=== PATIENT | male | born 1975 | race Caucasian/White ===

== ENCOUNTER 2023-08-26 22:40 | Emergency (ER) | payer MEDICAID ==
[2023-08-27 02:37] LABS: BASOPHILS ABSOLUTE AUTO 0.02 K/uL (0.00-0.20); BASOPHILS PERCENT AUTO 0.3 % (0.0-1.0); EOSINOPHILS ABSOLUTE AUTO 0.01 K/uL (0.00-0.45); EOSINOPHILS PERCENT AUTO 0.1 % (0.0-6.0); HEMATOCRIT 36.1 % (42.0-52.0); HEMOGLOBIN 12.1 g/dL (14.0-18.0); IMMATURE GRAN ABSOLUTE AUTO 0.02 K/uL (0.00-0.05); IMMATURE GRAN PERCENT AUTO 0.3 % (0.0-0.4); LYMPHOCYTES ABSOLUTE AUTO 0.67 K/uL (1.00-4.80); LYMPHOCYTES PERCENT AUTO 8.9 % (24.0-44.0); MEAN CORPUSCULAR HGB CONC 33.5 g/dL (32.0-36.0); MEAN CORPUSCULAR VOLUME 77.6 fL (83.0-99.0); MEAN PLATELET VOLUME 9.9 fL (9.4-12.4); MONOCYTES ABSOLUTE AUTO 0.98 K/uL (0.00-0.80); NEUTROPHILS ABSOLUTE AUTO 5.84 K/uL (1.80-7.70); NEUTROPHILS PERCENT AUTO 77.4 % (41.0-71.0); PLATELET COUNT,PLT 256 K/uL (150-400); RED BLOOD CELL COUNT 4.65 M/uL (4.52-5.90); WHITE BLOOD CELL COUNT,WBC 7.54 K/uL (3.9-11.3)
[2023-08-27 03:10] LABS: A/G RATIO 0.8 (0.9-1.6); ACETAMINOPHEN <2.0 ug/mL; ALANINE AMINOTRANSFERASE,ALT 8 IU/L (14-63); ALBUMIN 2.9 g/dL (3.4-5.0); ALKALINE PHOSPHATASE 97 U/L (46-116); ASPARTATE AMNIOTRANSFERASE,AST 9 IU/L (15-37); BILIRUBIN TOTAL 0.6 mg/dL (0.2-1.0); BLOOD UREA NITROGEN,BUN 10 mg/dL (7.0-18.0); CALCIUM 8.2 mg/dL (8.5-10.1); CARBON DIOXIDE,CO2 23.7 mmol/L (21.0-32.0); CHLORIDE,CL 103 mmol/L (98-107); CREATININE 1.2 mg/dL (0.8-1.3); EST CRCL DRUG DOSING (CG) 74.46 mL/min; GLUCOSE RANDOM 188 mg/dL (74-106); MAGNESIUM 1.7 mg/dL (1.8-2.4); POTASSIUM,K 3.4 mmol/L (3.5-5.1); PROTEIN TOTAL,TP 6.4 g/dL (6.4-8.2); SALICYLATE <0.2 mg/dL (0.0-20.0); SODIUM,NA 137 mmol/L (136-148); TSH ULTRASENSITIVE 1.33 uIU/mL (0.36-3.74)
[2023-08-27 03:19] LABS: ESTIMATED GFR 74 mL/min (>60); ETHANOL BLOOD MEDICAL < 3.0 mg/dL
[2023-08-27 03:38] LABS: APPEARANCE,URINE CLEAR; BILIRUBIN,URINE NEGATIVE (NEGATIVE); COLOR,URINE YELLOW; GLUCOSE,URINE NEGATIVE (NEGATIVE); KETONES,URINE NEGATIVE (NEGATIVE); LEUKOCYTE ESTERASE,URINE NEGATIVE (NEGATIVE); NITRITE,URINE NEGATIVE (NEGATIVE); OCCULT BLOOD,URINE NEGATIVE (NEGATIVE); PH,URINE 6.5 (5.0-8.0); PROTEIN,URINE NEGATIVE (NEGATIVE); UROBILINOGEN,URINE 0.2 EU/dL (<2.0)
[2023-08-27 03:45] LABS: BACTERIA,URINE RARE (NEGATIVE); EPITHELIAL CELLS,URINE RARE (NONE-FEW); RBC,URINE 0-1 (0-2/HPF); WBC,URINE NONE SEEN (0-5/HPF)
[2023-08-27 03:46] LABS: AMPHETAMINES SCREEN, URINE NEGATIVE (CUTOFF=500); BARBITURATE SCREEN,URINE NEGATIVE (CUTOFF=200); BENZODIAZEPINES SCREEN,URINE NEGATIVE (CUTOFF=150); BUPRENORPHINE SCREEN,URINE NEGATIVE (CUTOFF=10); METHADONE SCREEN, URINE NEGATIVE (CUTOFF=200); METHAMPHETAMINES SCREEN, URINE NEGATIVE (CUTOFF=500); OXYCODONE SCREEN,URINE NEGATIVE (CUT0FF=100); PCP SCREEN,URINE NEGATIVE (CUTOFF=25); THC SCREEN,URINE 20 NG/ML NEGATIVE (CUTOFF=50)
== END 2023-08-27 04:14 | disposition home or self-care (01) ==
LOC: MW.ED 22:40
DX: Z04.6 Encounter for general psychiatric examination, requested by authority (principal)
CPT/HCPCS: 36415; 80053; 80143; 80179; 80305-QW; 80307; 81001; 83735; 84443; 85025; 93005; 93010; 99282; 99283

== ENCOUNTER 2024-08-31 06:42 | Emergency (ER) | payer MEDICAID ==
[2024-08-31 08:09] LABS: INR 1.19 (0.86-1.11)
[2024-08-31 08:17] LABS: A/G RATIO 1.3 (0.9-1.6); ALANINE AMINOTRANSFERASE,ALT 33 IU/L (14-63); ALBUMIN 3.7 g/dL (3.4-5.0); ALKALINE PHOSPHATASE 87 U/L (46-116); ASPARTATE AMNIOTRANSFERASE,AST 49 IU/L (15-37); BILIRUBIN TOTAL 0.8 mg/dL (0.2-1.0); BLOOD UREA NITROGEN,BUN 18 mg/dL (7.0-18.0); CALCIUM 8.6 mg/dL (8.5-10.1); CARBON DIOXIDE,CO2 23.8 mmol/L (21.0-32.0); CHLORIDE,CL 106 mmol/L (98-107); EST CRCL DRUG DOSING (CG) 88.38 mL/min; GLUCOSE RANDOM 83 mg/dL (74-106); POTASSIUM,K 3.6 mmol/L (3.5-5.1); PROTEIN TOTAL,TP 6.5 g/dL (6.4-8.2); SODIUM,NA 141 mmol/L (136-148)
[2024-08-31 08:18] LABS: ESTIMATED GFR 92 mL/min (>60); ETHANOL BLOOD MEDICAL < 3.0 mg/dL
[2024-08-31 08:19] LABS: BASOPHILS ABSOLUTE AUTO 0.07 K/uL (0.00-0.20); BASOPHILS PERCENT AUTO 0.5 % (0.0-1.0); EOSINOPHILS ABSOLUTE AUTO 0.23 K/uL (0.00-0.45); EOSINOPHILS PERCENT AUTO 1.7 % (0.0-6.0); HEMATOCRIT 39.2 % (42.0-52.0); HEMOGLOBIN 13.5 g/dL (14.0-18.0); IMMATURE GRAN ABSOLUTE AUTO 0.07 K/uL (0.00-0.05); IMMATURE GRAN PERCENT AUTO 0.5 % (0.0-0.4); LYMPHOCYTES ABSOLUTE AUTO 0.63 K/uL (1.00-4.80); LYMPHOCYTES PERCENT AUTO 4.5 % (24.0-44.0); MEAN CORPUSCULAR HEMOGLOBIN 29.5 pg (28.0-32.0); MEAN CORPUSCULAR HGB CONC 34.4 g/dL (32.0-36.0); MEAN CORPUSCULAR VOLUME 85.6 fL (83.0-99.0); MEAN PLATELET VOLUME 10.3 fL (9.4-12.4); MONOCYTES ABSOLUTE AUTO 1.07 K/uL (0.00-0.80); MONOCYTES PERCENT AUTO 7.7 % (0.0-8.0); NEUTROPHILS ABSOLUTE AUTO 11.79 K/uL (1.80-7.70); NEUTROPHILS PERCENT AUTO 85.1 % (41.0-71.0); PLATELET COUNT,PLT 241 K/uL (150-400); RED BLOOD CELL COUNT 4.58 M/uL (4.52-5.90); WHITE BLOOD CELL COUNT,WBC 13.86 K/uL (3.9-11.3)
[2024-08-31 08:27] LABS: AMPHETAMINES SCREEN, URINE NEGATIVE (CUTOFF=500); BARBITURATE SCREEN,URINE NEGATIVE (CUTOFF=200); BENZODIAZEPINES SCREEN,URINE NEGATIVE (CUTOFF=150); BUPRENORPHINE SCREEN,URINE NEGATIVE (CUTOFF=10); METHADONE SCREEN, URINE NEGATIVE (CUTOFF=200); METHAMPHETAMINES SCREEN, URINE NEGATIVE (CUTOFF=500); OXYCODONE SCREEN,URINE NEGATIVE (CUT0FF=100); PCP SCREEN,URINE NEGATIVE (CUTOFF=25); THC SCREEN,URINE 20 NG/ML NEGATIVE (CUTOFF=50)
== END 2024-08-31 10:24 | disposition home or self-care (01) ==
LOC: MW.ED 06:42
DX: S00.83XA Contusion of other part of head, initial encounter (principal); Y04.0XXA Assault by unarmed brawl or fight, initial encounter
CPT/HCPCS: 36415; 70450; 70450-26; 70486; 70486-26; 72125; 72125-26; 80053; 80305-QW; 80307; 85025; 85610; 99284

== ENCOUNTER 2024-08-31 22:29 | Emergency (ER) | payer MEDICAID ==
[2024-08-31 23:03] LABS: BASOPHILS PERCENT AUTO 1.1 % (0.0-1.0); EOSINOPHILS ABSOLUTE AUTO 0.06 K/uL (0.00-0.45); EOSINOPHILS PERCENT AUTO 0.7 % (0.0-6.0); HEMATOCRIT 41.5 % (42.0-52.0); HEMOGLOBIN 14.1 g/dL (14.0-18.0); IMMATURE GRAN ABSOLUTE AUTO 0.02 K/uL (0.00-0.05); IMMATURE GRAN PERCENT AUTO 0.2 % (0.0-0.4); LYMPHOCYTES PERCENT AUTO 17.1 % (24.0-44.0); MEAN CORPUSCULAR VOLUME 85.4 fL (83.0-99.0); MEAN PLATELET VOLUME 9.9 fL (9.4-12.4); MONOCYTES ABSOLUTE AUTO 0.87 K/uL (0.00-0.80); MONOCYTES PERCENT AUTO 9.9 % (0.0-8.0); NEUTROPHILS ABSOLUTE AUTO 6.23 K/uL (1.80-7.70); PLATELET COUNT,PLT 247 K/uL (150-400); RED BLOOD CELL COUNT 4.86 M/uL (4.52-5.90); WHITE BLOOD CELL COUNT,WBC 8.78 K/uL (3.9-11.3)
[2024-08-31 23:25] LABS: APPEARANCE,URINE CLEAR; COLOR,URINE YELLOW; GLUCOSE,URINE NEGATIVE (NEGATIVE); KETONES,URINE >=80 mg/dL (NEGATIVE); LEUKOCYTE ESTERASE,URINE NEGATIVE (NEGATIVE); NITRITE,URINE NEGATIVE (NEGATIVE); OCCULT BLOOD,URINE TRACE-INTACT (NEGATIVE); PROTEIN,URINE NEGATIVE (NEGATIVE); UROBILINOGEN,URINE 0.2 EU/dL (<2.0)
[2024-08-31 23:28] LABS: BACTERIA,URINE FEW (NEGATIVE); BILIRUBIN,URINE SMALL (NEGATIVE); EPITHELIAL CELLS,URINE NOT SEEN (NONE-FEW); MUCUS,URINE LIGHT (NONE-MOD); RBC,URINE 0-3 (0-2/HPF); WBC,URINE 0-2 (0-5/HPF)
[2024-08-31 23:29] LABS: AMPHETAMINES SCREEN, URINE NEGATIVE (CUTOFF=500); BARBITURATE SCREEN,URINE NEGATIVE (CUTOFF=200); BENZODIAZEPINES SCREEN,URINE NEGATIVE (CUTOFF=150); BUPRENORPHINE SCREEN,URINE NEGATIVE (CUTOFF=10); METHADONE SCREEN, URINE NEGATIVE (CUTOFF=200); METHAMPHETAMINES SCREEN, URINE NEGATIVE (CUTOFF=500); OXYCODONE SCREEN,URINE NEGATIVE (CUT0FF=100); PCP SCREEN,URINE NEGATIVE (CUTOFF=25); THC SCREEN,URINE 20 NG/ML NEGATIVE (CUTOFF=50)
[2024-08-31 23:34] LABS: A/G RATIO 1.2 (0.9-1.6); ACETAMINOPHEN <2.0 ug/mL; ALANINE AMINOTRANSFERASE,ALT 40 IU/L (14-63); ALBUMIN 3.8 g/dL (3.4-5.0); ALKALINE PHOSPHATASE 98 U/L (46-116); ASPARTATE AMNIOTRANSFERASE,AST 46 IU/L (15-37); BILIRUBIN TOTAL 2.3 mg/dL (0.2-1.0); BLOOD UREA NITROGEN,BUN 20 mg/dL (7.0-18.0); CALCIUM 8.8 mg/dL (8.5-10.1); CARBON DIOXIDE,CO2 26.3 mmol/L (21.0-32.0); CHLORIDE,CL 103 mmol/L (98-107); CREATININE 1.3 mg/dL (0.8-1.3); EST CRCL DRUG DOSING (CG) 61.06 mL/min; GLUCOSE RANDOM 145 mg/dL (74-106); POTASSIUM,K 3.4 mmol/L (3.5-5.1); PROTEIN TOTAL,TP 6.9 g/dL (6.4-8.2); SALICYLATE <0.2 mg/dL (0.0-20.0); SODIUM,NA 139 mmol/L (136-148); TSH ULTRASENSITIVE 3.87 uIU/mL (0.36-3.74)
[2024-08-31 23:35] LABS: ESTIMATED GFR 67 mL/min (>60); ETHANOL BLOOD MEDICAL 3 mg/dL
[2024-08-31 23:52] LABS: T4 FREE 1.12 ng/dL (0.76-1.46)
== END 2024-09-01 00:38 ==
LOC: MW.ED 22:29
DX: F23 Brief psychotic disorder (principal)
CPT/HCPCS: 36415; 80053; 80143; 80179; 80305-QW; 80307; 81001; 84439; 84443; 85025; 99283